=== PATIENT | female | born 1975 | race Two or more races ===

== ENCOUNTER 2021-06-02 01:12 | Emergency (ER) | payer OTHER ==
[~2021-06-02] VITALS: Ht 154.9 cm; Wt 66.2 kg
[2021-06-02] MEDS ORDERED: NORFLEX100MG PO (05:31)
[2021-06-02] MEDS ORDERED: KETO10TA2 PO (05:31)
== END 2021-06-02 05:44 | disposition home or self-care (01) ==
LOC: ER 01:12
DX: M54.2 Cervicalgia (principal); M79.606 Pain in leg, unspecified; V43.62XA Car passenger injured in collision with other type car in traffic accident, initial encounter; Y93.89 Activity, other specified; Y92.410 Unspecified street and highway as the place of occurrence of the external cause

== ENCOUNTER 2021-06-06 11:33 | Emergency (ER) | payer OTHER ==
[~2021-06-06] VITALS: Ht 154.9 cm; Wt 66.2 kg
[~2021-06-06 11:33] MED LIST: KETO10TA2 PO; NORFLEX100MG PO
[2021-06-06] MEDS ORDERED: PEPCID AC20 MG PO (16:50)
[2021-06-06] MEDS ORDERED: ONDANSETRON ODT4 MG PO (16:50)
[2021-06-06] MEDS ORDERED: CELEBREX100 MG PO (16:50)
== END 2021-06-06 17:34 ==
LOC: ER 11:33
DX: S30.1XXA Contusion of abdominal wall, initial encounter (principal); V43.92XA Unspecified car occupant injured in collision with other type car in traffic accident, initial encounter; Y93.89 Activity, other specified; Y92.488 Other paved roadways as the place of occurrence of the external cause; Y99.8 Other external cause status
CPT/HCPCS: 74177; Q9965